=== PATIENT | female | born 1995 | race Native Hawaiian/Other Pacific Islander ===

== ENCOUNTER 2019-04-08 07:44 | Outpatient (CLI) | payer SELFPAY | END 2019-04-08 07:45 | disposition EMS.NT | LOC: EMS 07:44 | PROVIDERS: ATTEND Surgery | DX: R55 Syncope and collapse (principal) ==

== ENCOUNTER 2019-08-23 15:55 | Outpatient (CLI) | payer BC ==
--- NOTE | 2019-08-23 19:14 | Ultrasound Report ---
PROCEDURE: OB First Trimester INDICATIONS: POSITIVE TEST OUTSIDE/PRIOR DATING DATA: Last menstrual period (LMP): 05.24.19. LMP-based estimated date of delivery (YOVANY): 02.28.20. First dating scan (date and location): 08.23.19. Estimated date of delivery (YOVANY) from first dating scan: 02.27.20. TECHNIQUE: Real-time scanning was performed of the fetus and maternal pelvic organs, with image documentation. COMPARISON: None FINDINGS: Embryo: Single living intrauterine gestation is present, with a crown-rump length of 69 mm, correspo nding to a 13 week 1 day gestation. Measurement variability in dating: +/- 4 weeks by LMP, +/- 7 days by mean sac diameter (use before 6 weeks gestation if crown-rump length not able to be measured), +/- 5 days by crown-rump length (6-12 weeks gestation). Maternal organs: Corpus luteal cyst within the right ovary. Limited images through the kidneys demons trate no hydronephrosis. IMPRESSION: Single living intrauterine gestation as above. Reviewed by: Skye Alicea MD on 08/23/2019 7:13 PM PDT Approved by: Skye Alicea MD on 08/23/2019 7:13 PM PDT Station ID: [id number]
== END 2019-08-23 15:56 | disposition home or self-care (01) ==
LOC: DI 15:55
PROVIDERS: ATTEND Advanced Practice Midwife
DX: Z32.01 Encounter for pregnancy test, result positive (principal)
CPT/HCPCS: 76801

== ENCOUNTER 2019-09-25 07:00 | Outpatient (CLI) | payer BC ==
[2019-09-25 20:46] LABS: CANDIDA GROUP DNA NEGATIVE (NEGATIVE); CANDIDA KRUSEI DNA NEGATIVE (NEGATIVE); TRICHOMONAS VAGINALIS DNA NEGATIVE (NEGATIVE)
[2019-09-25 21:23] LABS: TRICHOMONAS VAGINALIS DNA NEGATIVE (NEGATIVE)
== END 2019-09-25 23:59 | disposition home or self-care (01) ==
LOC: LAB.R 07:00
PROVIDERS: ATTEND Radiology Diagnostic Radiology
DX: Z34.90 Encounter for supervision of normal pregnancy, unspecified, unspecified trimester (principal); N76.0 Acute vaginitis; Z36.89 Encounter for other specified antenatal screening
CPT/HCPCS: 36415; 80306; 81001; 81599; 85025; 86592; 86762; 86803; 86850; 86900; 86901; 87086; 87340; 87389; 87491; 87591; 87661; 87801

== ENCOUNTER 2019-09-25 09:19 | Outpatient (CLI) | payer BC ==
[2019-09-25 09:35] LABS: MUDS CUTOFF CONCENTRATIONS CUTOFF CONC BELOW:
[2019-09-25 09:42] LABS: BASOPHILS # (AUTO) 0.1 10^3/uL (0.0-0.1); BASOPHILS % (AUTO) 0.5 %; EOSINOPHILS # (AUTO) 0.1 10^3/uL (0.0-0.7); EOSINOPHILS % (AUTO) 0.5 %; HGB - HEMOGLOBIN 11.8 g/dL (12.0-16.0); LYMPHOCYTES # (AUTO) 1.4 10^3/uL (1.5-3.5); LYMPHOCYTES % (AUTO) 10.9 %; MEAN CORPUSCULAR HEMOGLOBIN 31.6 pg (27.0-31.0); MEAN CORPUSCULAR HGB CONC 33.7 g/dL (32.0-36.0); MEAN CORPUSCULAR VOLUME 93.6 fL (81.0-99.0); MEAN PLATELET VOLUME 8.4 fL (7.9-10.8); MONOCYTES # (AUTO) 0.5 10^3/uL (0.0-1.0); MONOCYTES % (AUTO) 3.6 %; NEUTROPHILS # (AUTO) 10.6 10^3/uL (1.5-6.6); PLT - PLATELET COUNT 220 10^3/uL (130-450); RED BLOOD COUNT 3.74 10^6/uL (4.20-5.40); RED CELL DISTRIBUTION WIDTH 11.9 % (12.0-15.0); WHITE BLOOD COUNT 12.6 x10^3/uL (4.8-10.8)
[2019-09-25 09:44] LABS: BILIRUBIN,URINE NEGATIVE (NEGATIVE); GLUCOSE, URINE (UA) NEGATIVE (NEGATIVE); KETONES,URINE (UA) 40 mg/dL (NEGATIVE); LEUKOCYTE ESTERASE, URINE NEGATIVE (NEGATIVE); NITRITE,URINE NEGATIVE (NEGATIVE); OCCULT BLOOD,URINE NEGATIVE (NEGATIVE); PH,URINE 6.5 PH (5.0-7.5); PROTEIN,URINE NEGATIVE (NEGATIVE); UROBILINOGEN,URINE 0.2 (NORMAL) E.U./dL (NORMAL)
[2019-09-25 09:46] LABS: CLARITY,URINE CLEAR (CLEAR)
[2019-09-25 10:07] LABS: AMPHETAMINE SCREEN,URINE NEGATIVE (NEGATIVE); BENZODIAZEPINES SCREEN, URINE NEGATIVE (NEGATIVE); COCAINE SCREEN URINE NEGATIVE (NEGATIVE); METHADONE SCREEN, URINE NEGATIVE (NEGATIVE); METHAMPHETAMINES SCREEN, URINE NEGATIVE (NEGATIVE); OPIATE SCREEN, URINE NEGATIVE (NEGATIVE); OXYCODONE SCREEN, URINE NEGATIVE (NEGATIVE); PROPOXYPHENE SCREEN, URINE NEGATIVE (NEGATIVE); TRICYCLIC ANTIDEPRESSANT,URINE NEGATIVE (NEGATIVE)
[2019-09-25 10:12] LABS: AMORPHOUS SEDIMENT,UR Few /LPF; BACTERIA,URINE Few /HPF (None Seen); RBC,URINE 0-5 /HPF (0-5); SQUAMOUS EPITHELIAL CELL,UR FEW Squamous (<= Few)
[2019-09-26 12:04] LABS: HEPATITIS B SURFACE ANTIGEN NON-REACTIVE (NON-REACTIVE); HEPATITIS C ANTIBODY NON-REACTIVE (NON-REACTIVE)
[2019-09-26 13:33] LABS: HIV AG/AB 4TH GEN NON-REACTIVE (NON-REACTIVE)
== END 2019-09-25 09:20 | disposition home or self-care (01) ==
LOC: LAB 09:19
PROVIDERS: ATTEND Advanced Practice Midwife
DX: Z36.89 Encounter for other specified antenatal screening (principal)
CPT/HCPCS: 36415; 80306; 81001; 81599; 85025; 86592; 86762; 86803; 86850; 86900; 86901; 87086; 87340; 87389

== ENCOUNTER 2019-10-02 15:58 | Outpatient (CLI) | payer BC ==
--- NOTE | 2019-10-02 17:24 | Ultrasound Report ---
PROCEDURE: OB Detailed Eval INDICATIONS: SUPERVISION OF OUTSIDE/PRIOR DATING DATA: Last menstrual period (LMP): 05/24/2019. LMP-based estimated date of delivery (YOVANY): 02/28/2020. First dating scan (date and location): 08/23/2019. Estimated date of delivery (YOVANY) from first dating scan: 02/27/2020. TECHNIQUE: Real-time scanning was performed of the fetus, with image documentation and biometric measurements. COMPARISON: OB ultrasound 08/23/2019 FINDINGS: General: A single living intrauterine gestation is present. Presentation: Vertex Placenta: Placental position is posterior, without previa. Amniotic fluid index: 13.3 cm, 45th percentile for gestational age. Largest pocket measures 3.7 cm heart rate: 140 beats per minute. Maternal cervical canal: 4.2 cm long; normal length is 2.5 cm or more. biometrics: Biparietal diameter: 4.0 cm 18 weeks 2 days Head circumference: 15.8 cm 18 weeks 5 days Abdominal circumference: 30.1 cm 18 weeks 4 days Femur length: 2.9 cm 19 weeks 1 day Estimated gestational age from initial scan: 18 weeks 6 days Composite gestational age from present scan: 18 weeks 6 days Estimated weight and percentile: 2 60 g 44th percentile Measurement variability in biometric dating: +/- 10 days from 12-20 weeks gestation, +/- 2 weeks from 20-30 weeks gestation, +/- 3 weeks at 30 weeks gestation or later. Anatomic survey: Neuro: Ventricles are normal at less than 10 mm. Cisterna magna is normal at 3-11 mm. Cerebellum i s normal in size and morphology. Nuchal skin fold: Normal at less than 6 mm between 14 and 20 weeks gestational age. Face: Nose and lips, facial profile are normal. Spine: No evidence for spina bifida. Heart: 4-chambered heart is not well visualized. Diaphragm: Diaphragm is intact. Stomach: Left-sided stomach is present. Kidneys: No hydronephrosis. Normal is less than 5 mm in 2nd trimester, less than 7 mm in 3rd trimester. Cord: 3 vessel cord has orthotopic insertion. Bladder: Normal in size. Extremities: All 4 extremities are visualized. IMPRESSION: 1. Single live intrauterine with ultrasound gestational age of 18 weeks 6 days correspondin g to YOVANY of 02/27/2020. 2. 4 chambered heart is suboptimally evaluated. Recommend interval follow-up for further evaluation. Reviewed by: Katie Leyva MD on 10/02/2019 5:22 PM PDT Approved by: Katie Leyva MD on 10/02/2019 5:22 PM PDT Station ID: [id number]
== END 2019-10-02 15:59 | disposition home or self-care (01) ==
LOC: DI 15:58
PROVIDERS: ATTEND Advanced Practice Midwife
DX: Z34.90 Encounter for supervision of normal pregnancy, unspecified, unspecified trimester (principal)
CPT/HCPCS: 76811

== ENCOUNTER 2019-11-09 16:29 | Outpatient (CLI) | payer BC ==
--- NOTE | 2019-11-09 22:10 | Ultrasound Report ---
PROCEDURE: OB F/U or Repeat INDICATIONS: INCOMPLETE FAS OUTSIDE/PRIOR DATING DATA: Last menstrual period (LMP): 05/24/2019. LMP-based estimated date of delivery (YOVANY): 02/28/2020. First dating scan (date and location): 08/23/2019. Estimated date of delivery (YOVANY) from first dating scan: 02/27/2020. TECHNIQUE: Real-time scanning was performed of the fetus, with image documentation and biometric measurements. Endovaginal scanning: Not performed COMPARISON: 10/02/2019 FINDINGS: General: A single living intrauterine gestation is present. Presentation: Breech Placenta: Placental position is posterior, without previa. Amniotic fluid index: 12.8 cm, which measures at the 26th percentile for gestational age. heart rate: 132 beats per minute. Maternal cervical canal: 3.9 cm long; normal length is 2.5 cm or more. Other: The four-chamber heart, ventricular outflow tracts, chest/diaphragm, stomach/abdomen, fet al urinary bladder were evaluated today and appear normal. IMPRESSION: 1. Single living intrauterine gestation with estimated gestational age of approximately 24 weeks and 2 days. 2. Follow-up imaging of 4 chamber heart, ventricular outflow tracts, chest/diaphragm, stomach/a bdomen, and urinary bladder appear unremarkable. Reviewed by: Walt Wilson MD on 11/09/2019 10:09 PM PDT Approved by: Walt Wilson MD on 11/09/2019 10:09 PM PDT Station ID: [id number]
== END 2019-11-09 16:30 | disposition home or self-care (01) ==
LOC: DI 16:29
PROVIDERS: ATTEND Advanced Practice Midwife
DX: Z34.90 Encounter for supervision of normal pregnancy, unspecified, unspecified trimester (principal)
CPT/HCPCS: 76816

== ENCOUNTER 2019-12-06 08:57 | Outpatient (CLI) | payer BC ==
[2019-12-06 10:16] LABS: HGB - HEMOGLOBIN 11.9 g/dL (12.0-16.0); MEAN CORPUSCULAR HEMOGLOBIN 31.2 pg (27.0-31.0); MEAN CORPUSCULAR VOLUME 94.5 fL (81.0-99.0); MEAN PLATELET VOLUME 8.4 fL (7.9-10.8); RED BLOOD COUNT 3.82 10^6/uL (4.20-5.40); RED CELL DISTRIBUTION WIDTH 11.7 % (12.0-15.0); WHITE BLOOD COUNT 11.5 x10^3/uL (4.8-10.8)
== END 2019-12-06 08:58 | disposition home or self-care (01) ==
LOC: LAB 08:57
PROVIDERS: ATTEND Nurse Practitioner Obstetrics & Gynecology
DX: Z36.89 Encounter for other specified antenatal screening (principal)
CPT/HCPCS: 36415; 82950; 85027

== ENCOUNTER 2020-02-05 08:00 | Outpatient (CLI) | payer BC ==
[2020-02-05 22:10] LABS: TRICHOMONAS VAGINALIS DNA NEGATIVE (NEGATIVE)
== END 2020-02-05 23:59 | disposition home or self-care (01) ==
LOC: LAB.R 08:00
PROVIDERS: ATTEND Nurse Practitioner Obstetrics & Gynecology
DX: Z36.85 Encounter for antenatal screening for Streptococcus B (principal); Z36.89 Encounter for other specified antenatal screening; Z11.3 Encounter for screening for infections with a predominantly sexual mode of transmission
CPT/HCPCS: 87491; 87591; 87661; 87797

== ENCOUNTER 2020-02-07 08:13 | Outpatient (CLI) | payer BC ==
[2020-02-07] MEDS ORDERED: SODIUM CHLORIDE FLUSH 0.9% 10 ML SYRINGE IVP PRN (08:29)
[2020-02-07 08:53] VITALS: BP 131/80
[2020-02-07] MEDS ORDERED: LACTATED RINGERS 1,000 ML IV ONE (08:55)
--- NOTE | 2020-02-07 09:32 | PROCEDURE REPORT ---
Hospitalist Procedure Note - Procedure Note Procedure Note: Pt was noted to be breech in the clinic. She was setup for an external version. Risks and benefits were explained to the Pt to include distress which may lead to an immediate C/S for distress abruption and rupture. reactive strip was noted prior to attempt. The head was noted to be in the right upper quadrant.Under ultrasonic guidance a forward flip was attempted followed by a back flip. The breech remained in the pelvis. The head with clock otero rotation only moved to the left upper quadrant. Follow the attempt NST was done. Pt will have US prior to C/S.
== END 2020-02-07 10:20 | disposition home or self-care (01) ==
LOC: WFO 08:13 → FBP 08:20 → WFO 10:20
PROVIDERS: ATTEND Obstetrics & Gynecology
DX: O32.1XX0 Maternal care for breech presentation, not applicable or unspecified (principal); Z3A.00 Weeks of gestation of pregnancy not specified
CPT/HCPCS: 59412

== ENCOUNTER 2020-02-18 08:00 | Outpatient (CLI) | payer BC ==
[2020-02-18 08:44] LABS: BASOPHILS % (AUTO) 0.2 %; EOSINOPHILS # (AUTO) 0.1 10^3/uL (0.0-0.7); EOSINOPHILS % (AUTO) 1.3 %; HGB - HEMOGLOBIN 12.3 g/dL (12.0-16.0); LYMPHOCYTES # (AUTO) 1.4 10^3/uL (1.5-3.5); LYMPHOCYTES % (AUTO) 15.6 %; MEAN CORPUSCULAR HEMOGLOBIN 30.6 pg (27.0-31.0); MEAN CORPUSCULAR HGB CONC 33.1 g/dL (32.0-36.0); MEAN CORPUSCULAR VOLUME 92.5 fL (81.0-99.0); MEAN PLATELET VOLUME 8.8 fL (7.9-10.8); MONOCYTES # (AUTO) 0.7 10^3/uL (0.0-1.0); MONOCYTES % (AUTO) 7.3 %; NEUTROPHILS # (AUTO) 6.8 10^3/uL (1.5-6.6); NEUTROPHILS % (AUTO) 74.6 %; PLT - PLATELET COUNT 222 10^3/uL (130-450); RED BLOOD COUNT 4.02 10^6/uL (4.20-5.40); RED CELL DISTRIBUTION WIDTH 11.6 % (12.0-15.0); WHITE BLOOD COUNT 9.2 x10^3/uL (4.8-10.8)
== END 2020-02-18 08:01 | disposition home or self-care (01) ==
LOC: LAB 08:00
PROVIDERS: ATTEND Obstetrics & Gynecology
DX: Z01.812 Encounter for preprocedural laboratory examination (principal); O32.1XX0 Maternal care for breech presentation, not applicable or unspecified; Z20.828 Contact with and (suspected) exposure to other viral communicable diseases; Z3A.39 39 weeks gestation of pregnancy
CPT/HCPCS: 36415; 85025; 86850; 86900; 86901

== ENCOUNTER 2020-02-21 05:29 | Inpatient (IN) | payer BC ==
[~2020-02-21 05:29] MED LIST: ceFAZolin 2 GM in SODIUM CHLORIDE 0.9% 100ML 100 ML IV ONE
[2020-02-21] MEDS: LACTATED RINGERS 1,000 ML IV SCH ×3 (06:25→22:40)
--- NOTE | 2020-02-21 07:00 | ANESTHESIA ---
Pre-Anesthesia VS, & Labs - Diagnosis failed external cephalicversion, breech presentation - Procedure section Vital Signs: Temp Pulse Resp BP Pulse Ox 37 C 85 20 123/78 100 02/21/20 05:58 02/21/20 05:52 02/21/20 05:52 02/21/20 05:52 02/21/20 05:52 Height: 5 ft 2 in Weight (kg): 71.214 kg Body Mass Index: 28.7 BMI Classification: Overweight - NPO >8 hours - Is Patient ?: Yes - Lab Results Lab results reviewed: Yes Home Medications and Allergies Active Medications Lactated Ringer's (Lr) 1,000 mls @ 125 mls/hr IV .Q8H LORETTA Last Admin: 02/21/20 06:25 Dose: 125 mls/hr Documented by: Allergies/Adverse Reactions: Allergies Allergy/AdvReac Type Severity Reaction Status Date / Time No Known Drug Allergies Allergy Verified 02/20/20 13:50 Anes History & Medical History - Anesthetic History Anesthesia Complications: reports: No previous complications Family history of Anesthesia Complications: Denies Family history of Malignant Hyperthermia: Denies - Medical History Gastrointestinal: reports: None Urinary: reports: None Blood Disorders: reports: None Smoking Status: Former smoker Exam General: Alert, Oriented x3, Cooperative, No acute distress Dental: WNL Mouth Openin Fingerbreadth Neck Mobility: Normal Mallampati classification: II Plan Anesthesia Type: Spinal Consent for Procedure(s) Verified and Reviewed: Yes Code Status: Attempt Resuscitation ASA classification: 2-Mild systemic disease Is this case an emergency?: No
[2020-02-21] MEDS ORDERED: ONDANSETRON ODT 4 MG TABLET TL PRN (09:16)
[2020-02-21] MEDS ORDERED: SODIUM CHLORIDE FLUSH 0.9% 10 ML SYRINGE IVP PRN (09:16)
[2020-02-21] MEDS ORDERED: oxyCODONE 5 MG TABLET PO PRN (09:16)
[2020-02-21] MEDS ORDERED: SIMETHICONE CHEW 80 MG TABLET PO PRN (09:16)
[2020-02-21] MEDS ORDERED: WITCH HAZEL/GLYCERIN 1 PAD TOP PRN (09:16)
[2020-02-21] MEDS ORDERED: HYDROCORTISONE 1% CREAM 28 GM TUBE PR PRN (09:16)
--- NOTE | 2020-02-21 09:16 | OPERATIVE REPORT ---
Operative Report - General Admit Date: 02/21/20 Procedure Performed: DOS 02/21/20 Preop: IUP at 39w0d, breech Postop: same and oligohydramnios Procedure: primary LTCS Surg: tali Assist: Stanley Anesthesia: spinal EBL 200cc IVF 1700cc UOP 200cc 7/9 Complications: superficial sandi in buttocks Dispo: PACU Prophyaxis: Ancef and SCD Findings: normal maternal anatomy. Anhydramnios. Liveborn male.
[2020-02-21] MEDS ORDERED: LACTATED RINGERS 1,000 ML IV ONE (09:20)
--- NOTE | 2020-02-21 13:44 | ANESTHESIA POST OP EVALUATION ---
Anesthesia Post Eval - Post Anesthesia Eval Vitals: Last Vital Signs Temp 36.4 C L 02/21/20 12:53 Pulse 75 02/21/20 12:53 Resp 18 02/21/20 12:53 BP 99/47 L 02/21/20 12:53 Pulse Ox 99 02/21/20 12:53 CV Function Including HR & BP: positive: Stable Pain Control: positive: Satisfactory Nausea & Vomiting: positive: Negative Mental Status: positive: Patient Participates Respiratory Status: Airway Patent Hydration Status: Satisfactory Anesthesia Complications: positive: None
[2020-02-21] MEDS: KETOROLAC 30 MG/ML VIAL IVP SCH ×2 (14:45→20:51)
[2020-02-21] MEDS: ACETAMINOPHEN 500 MG TABLET PO SCH ×2 (14:45→22:38)
[2020-02-21] MEDS ORDERED: SODIUM CHLORIDE FLUSH 0.9% 10 ML SYRINGE IVP SCH (17:00)
[2020-02-21] MEDS: DOCUSATE SODIUM 100 MG CAPSULE PO SCH (20:51)
[2020-02-22] MEDS: KETOROLAC 30 MG/ML VIAL IVP SCH (02:45)
--- NOTE | 2020-02-22 02:58 | OPERATIVE REPORT ---
DATE OF SERVICE: 02/21/2020 Physician: Sera Mayo MD PREOPERATIVE DIAGNOSES 1. Intrauterine at 39 weeks 0 days. 2. Breech presentation. POSTOPERATIVE DIAGNOSES 1. Intrauterine at 39 weeks 0 days. 2. Breech presentation. 3. Anhydramnios. PROCEDURE PERFORMED: Primary low transverse section. SURGEON: Sera Mayo MD MORPHOLOGY TEACHER: Christina Angel, certified nurse mixing and molding machine operator. Needed in order to obtain visualization throu gh retraction following a suture as well as delivery with adequate fundal pressure. ANESTHESIA: Spinal. ESTIMATED BLOOD LOSS: 200 mL INTRAVENOUS FLUIDS: 1700 mL URINE OUTPUT: 200 mL COUNTS: Correct x2. COMPLICATIONS: Superficial sandi in the skin at the level of the hip. DISPOSITION: Stable to the recovery room. PROPHYLAXIS: SCDs to bilateral lower extremities. Ancef 2 grams IV prior to skin incision. SPECIMENS: Cord blood for typing. Placenta not sent. FINDINGS: Liveborn male, Apgars 7 at one minute and 9 at five minutes. Anhydramnios. Normal sport intern al anatomy including uterus, ovaries, and fallopian tubes. DESCRIPTION OF PROCEDURE: The patient was brought to the operating room, where she underwent spinal anesthesia. She was placed in a left tilt. heart tones were auscultated in the normal range. Her hair was clipped. A Ledesma catheter was placed. She was prepped and draped in the usual sterile fashion. A scalpel was used to make a Pfannenstiel skin incision 3 cm superior to the pubic symphys is. This was carried down to the fascia, which was nicked in the midline bilaterally. The fascial i ncision was extended laterally and slightly superiorly, sharply. Kochers were placed on the inferior margin of the fascial incision and the fascia was bluntly and sharply dissected off of the underlyin g rectus. The Kochers were replaced superiorly and the same was performed. The rectus were slightly parted. The pyramidalis muscles were in their midline sharply. The peritoneal cavity was entered sharply. The tissues were stretched and room was deemed to be adequate. A bladder retracto r was placed. A scalpel was used to make a transverse incision in the lower uterine segment. The pa tient had anhydramnios, which was surprising. No bag of sanabria was encountered. The baby's skin was very superficially nicked 1 cm in length. This was just above his hip. This was not noted by the yaa salcedo or the public health sanitarian technician upon initial examination of the baby. They were able to visualize it after I notified them of the sandi. Baby is doing fine and cosmetically should do fine. No treatment has b een ordered by the public health sanitarian technician. The surgeon placed her hand into the uterine cavity and elevated th e buttocks. Fundal pressure was applied to deliver the body to the level of the xiphoid. The feet spontaneously delivered. The baby was delivered to the shoulder with fundal pressure. The ante rior arm was delivered by sweeping it across the chest anteriorly. The body was rotated 180 degrees and the same was performed on the other arm. The head was delivered in flexion with uterine pressure . The umbilical cord was clamped x2 and cut and the baby was handed to the public health sanitarian technician in waiting. The placenta was delivered with external uterine massage. Trailing membranes were removed with a rin g forceps. Dry curettage with a lap of the uterine cavity yielded no further products of conception. The uterus was closed with a running layer of 0 Vicryl. A second imbricating layer was performed. The patient had oozing from the midline incision. This was oversewn with [id number] of 0 Vicry l with good hemostasis eventually resulting. Internal anatomy was palpated to be normal. Both gutte rs were irrigated with a sloppy wet lap. Hemostasis was excellent on the uterus, rectus, and fascia. The rectus were parted in their resting state and so the underlying peritoneum was closed with two figure of eight sutures. The fascia was closed with a running layer of 0 Vicryl going from end-to-en d. Small subcutaneous bleeders were cauterized. The subcutaneous tissues were reapproximated with i nterrupted sutures of 2-0 Vicryl. The skin was closed with 4-0 Monocryl and then Dermabond was appli ed. Fundal massage yielded a scant amount of blood and clot. The patient had excellent uterine tone throughout the procedure. The patient and her partner were notified about the sandi on the baby's sk in. This will be monitored through the rest of the baby's hospital stay. TD: 02/21/2020 19:48
[2020-02-22] MEDS: LACTATED RINGERS 1,000 ML IV SCH (06:11)
[2020-02-22] MEDS: ACETAMINOPHEN 500 MG TABLET PO SCH ×3 (06:50→22:10)
[2020-02-22] MEDS: IBUPROFEN 600 MG TABLET PO SCH ×3 (08:24→22:11)
[2020-02-22] MEDS: DOCUSATE SODIUM 100 MG CAPSULE PO SCH ×2 (08:24→22:10)
[2020-02-22] MEDS ORDERED: IBUPROFEN 600 MG TABLET PO SCH (10:00)
--- NOTE | 2020-02-22 10:50 | PROVIDER PROGRESS NOTE ---
Subjective - Subjective Subjective: Feeling well. No narcs needed. Eat, ambulate, urinate, breastfeed well. Mood is good. VB more than a period but <1 pad per hour. Hypotensive but HR normal Alert, smiling, NAD Abd exam by RN as pt was while I was in the room: fundus firm at umbilicus, incision approximated without erythema LE without edema 24yo POD #1 s/p primary for breech. Doing very well, anticipate routine care. B+, RI. S/p tdap and flu vax. Chlamydia treated at 36w, ARTURO sent today. Needs pap . Planning OCP for contraception. Objective - Vital Signs/Intake & Output Vital Signs: Vital Signs x48h Temp Pulse Resp BP Pulse Ox 02/22/20 08:20 97.5 F L 79 21 117/58 L 99 Intake & Output: Intake & Output 02/19/20 02/20/20 02/21/20 02/22/20 23:59 23:59 23:59 23:59 Intake Total 2572.917 1239.583 Output Total 1240 1432 Balance 1332.917 -192.417
[2020-02-22 20:27] LABS: TRICHOMONAS VAGINALIS DNA NEGATIVE (NEGATIVE)
[2020-02-23] MEDS: IBUPROFEN 600 MG TABLET PO SCH ×2 (03:49→10:12)
--- NOTE | 2020-02-23 06:22 | Discharge Plan ---
Discharge Plan Problem Reviewed?: Yes Disposition: Home, Self Care Condition: Good Prescriptions: oxyCODONE [Roxicodone] 5 mg PO Q4-6H PRN #15 tablet PRN Reason: Severe Pain Diet: Regular Activity Restrictions: No lifting more than 10lb Shower Restrictions: No Driving Restrictions: Yes (Not while taking oxycodone) Instruction Topics: C Section Dc No Smoking: If you smoke, Please STOP! Call for help. Follow-up with: Randy Maldonado MD [Provider Admit Priv/Credential] - 1 Week
[2020-02-23 07:55] VITALS: BP 121/71
[2020-02-23] MEDS: DOCUSATE SODIUM 100 MG CAPSULE PO SCH (07:55)
[2020-02-23] MEDS: ACETAMINOPHEN 500 MG TABLET PO SCH ×2 (07:55→10:12)
[2020-02-23] MEDS ORDERED: SODIUM CHLORIDE IV ONE (10:44)
[2020-02-23] MEDS ORDERED: PHENYLEPHRINE 10 MG/ML VIAL IV ONE (10:44)
[2020-02-23] MEDS ORDERED: fentaNYL 100 MCG/2 ML VIAL IVP ONE (10:44)
[2020-02-23] MEDS ORDERED: OXYTOCIN IV ONE (10:44)
[2020-02-23] MEDS ORDERED: GLYCOPYRROLATE 1 MG/5 ML VIAL IVP ONE (10:44)
[2020-02-23] MEDS ORDERED: KETOROLAC 30 MG/ML VIAL IVP ONE (10:44)
[2020-02-23] MEDS ORDERED: MORPHINE PF 5 MG/10 ML VIAL EP ONE (10:44)
[2020-02-23] MEDS ORDERED: ESMOLOL 100 MG/10 ML VIAL IVP ONE (10:44)
--- NOTE | 2020-02-23 10:56 | Labor Flowsheet ---
Labor Flowsheet Datetime Report Generated by CPN: 02/23/2020 10:56 Datetime: 02/21/2020 11:53 VAGINAL EXAM Membranes Ruptured Date/Time: 02/21/2020 08:15 Membranes Rupture Method: Artificial Amniotic Fluid Color: Clear Amniotic Fluid Amount: None Amniotic Fluid Odor: Normal
--- NOTE | 2020-02-23 14:38 | DISCHARGE SUMMARY ---
Physician: Sera Mayo MD DATE OF ADMISSION: 02/21/2020 DATE OF DISCHARGE: 02/23/2020 ADMISSION DIAGNOSES 1. Intrauterine at 39 weeks 0 days. 2. Breech presentation. DISCHARGE DIAGNOSES 1. Anhydramnios. 2. Status post section. OPERATIONS AND PROCEDURES: On 02/21/2020; primary low-transverse section. ESTIMATED BLOOD LOSS: 200 mL. Apgars were 7 and 9. There is an incidental finding of anhydramnios. HOSPITAL COURSE: The patient was admitted for a scheduled due to her breech presentation. The surgery was uncomplicated, but she did have an incidental finding of anhydramnios. Rupture of m embranes was not suspected. Her course was uncomplicated. By day #2, she was requesting discharge home. She was eating, ambulating, urinating, and without difficul ties. Her mood was good and she had good pain control. She was not having any heavy bleeding. She was afebrile with normal vital signs. She was alert and smiling, and in no apparent distress. The a bdomen was soft, nontender, and nondistended. Fundus firm, nontender, and at the umbilicus. Incisio n clean, dry, and intact without erythema or induration. No lower extremity edema bilaterally. The patient did test positive for chlamydia at 36 weeks, this was treated. She had a negative test o f cure while in the hospital. She is blood type B positive, rubella immune, and has received both wh ooping cough and flu vaccinations. DISCHARGE DISPOSITION: Home. CONDITION: Good. FOLLOWUP: In one week. PRECAUTIONS: Routine postoperative and precautions given. TD: 02/23/2020 06:27
--- NOTE | 2020-02-25 08:33 | PROVIDER PROGRESS NOTE ---
Subjective - Subjective Subjective: No changes to H&P for surgery 02/21/20. H&P reviewed on 02/21/20 07:30. Objective - Vital Signs/Intake & Output Intake & Output: Intake & Output 02/22/20 02/23/20 02/24/20 02/25/20 23:59 23:59 23:59 23:59 Intake Total 1239.583 Output Total 2632 Balance -1392.417
== END 2020-02-23 10:45 | disposition home or self-care (01) | DRG 787 ==
LOC: FBP 05:29
PROVIDERS: ADMIT Obstetrics & Gynecology; ATTEND Obstetrics & Gynecology
PROC: 10D00Z1 Extraction of Products of Conception, Low, Open Approach (ICD-10-PCS; principal; 2020-02-21 07:30)
DX: O32.1XX0 Maternal care for breech presentation, not applicable or unspecified (principal); O98.32 Other infections with a predominantly sexual mode of transmission complicating childbirth; O41.03X0 Oligohydramnios, third trimester, not applicable or unspecified; Z3A.39 39 weeks gestation of pregnancy; A56.8 Sexually transmitted chlamydial infection of other sites; Z37.0 Single live birth
CPT/HCPCS: 87491; 87591; 87661; A9270; J2274; J7120